=== PATIENT | male | born 1950 | race Hispanic/Latino ===

== ENCOUNTER 2018-12-19 16:15 | Observation (INO) | payer MEDICARE ==
[~2018-12-19] VITALS: Ht 170.2 cm; Wt 108.9 kg
[2018-12-19 17:02] LABS: BASOPHILS % 0.1 % (0.0-1.0); HEMATOCRIT 42.2 % (38.2-49.6); HEMOGLOBIN 14.3 g/dL (14.0-18.0); LYMPHOCYTES # (AUTO) 0.8 (1.0-3.2); LYMPHOCYTES % 4.1 % (18.0-39.1); MEAN CORPUSCULAR HGB CONC 33.9 g/dL (31-35); MEAN CORPUSCULAR VOLUME 91.3 fL (81-99); MONOCYTES # (AUTO) 0.7 (0.2-0.8); MONOCYTES % 3.9 % (4.4-11.3); NEUTROPHILS # (AUTO) 17.1 (2.1-6.9); NEUTROPHILS % 91.1 % (38.7-80.0); PLATELET COUNT 242 x10e3/uL (140-360); RED BLOOD COUNT 4.62 x10e6/uL (4.3-5.7); RED CELL DISTRIBUTION WIDTH 12.6 % (11.7-14.4)
[2018-12-19 17:17] LABS: ALANINE AMINOTRANSFERASE 30 IU/L (0-55); ALBUMIN 4.3 g/dL (3.5-5.0); ALBUMIN/GLOBULIN RATIO 1.4 (0.8-2.0); ALKALINE PHOSPHATASE 77 IU/L (40-150); ANION GAP 14.2 mmol/L (8-16); BLOOD UREA NITROGEN 23 mg/dL (7-26); BUN/CREATININE RATIO 19 (6-25); CALCIUM 9.9 mg/dL (8.4-10.2); CARBON DIOXIDE 24 mmol/L (22-29); CHLORIDE 105 mmol/L (98-107); CREATINE KINASE 1135 IU/L (30-200); CREATININE, SERUM 1.19 mg/dL (0.72-1.25); EST GLOMERULAR FILTRATION RATE > 60 ML/MIN (60-); GLUCOSE 138 mg/dL (74-118); POTASSIUM 4.2 mmol/L (3.5-5.1); SODIUM 139 mmol/L (136-145)
[2018-12-19 17:26] LABS: INR 1.05; PARTIAL THROMBOPLASTIN TIME 27.2 seconds (23.8-35.5); PROTHROMBIN TIME 14.2 seconds (11.9-14.5)
--- NOTE | 2018-12-19 18:14 | Diagnostic Imaging Report ---
EXAMINATION: CHEST SINGLE (PORTABLE) COMPARISON: None INDICATION: ^CHEST PAIN ^[id number] ^1752 ^Y DISCUSSION: Frontal view of the chest obtained at 1752 hours. HEART AND MEDIASTINUM: Enlarged with cardiac bypass changes LINES: None. LUNGS: The lungs are mildly hyperinflated suggestive of small airways disease. There is subsegmental atelectasis in the left lung. No pneumonia or pulmonary edema. PLEURA: No pleural effusion or pneumothorax. BONES AND SOFT TISSUES: Median sternotomy wires appear intact. The soft tissues are normal. IMPRESSION: Cardiomegaly without vascular congestion. Postoperative changes as described above. Mild pulmonary hyperinflation suggestive of small airways disease. Signed by: Dr. Beti Estevez MD on 12/19/2018 6:11 PM
[2018-12-19] MEDS ORDERED: ACETAMINOPHEN 325 MG TAB PO ONE (18:45)
[2018-12-19 18:50] LABS: BILIRUBIN,URINE NEGATIVE (NEGATIVE); CLARITY,URINE SL CLOUDY (CLEAR); COLOR,URINE YELLOW (YELLOW); KETONES,URINE NEGATIVE (NEGATIVE); LEUKOCYTE ESTERASE ,URINE NEGATIVE (NEGATIVE); NITRITE,URINE NEGATIVE (NEGATIVE); PROTEIN,URINE DIPSTICK 1+ (NEGATIVE); URINE UROBILINOGEN 0.2 mg/dL (0.2 - 1)
[2018-12-19] MEDS ORDERED: ACETAMINOPHEN 325 MG TAB ONE (18:50)
--- NOTE | 2018-12-19 19:05 | NUR ---
REPORT GIVEN TO DEUCE DAMON.
[2018-12-19 19:08] LABS: BACTERIA,URINE FEW /HPF; EPITHELIAL CELLS,URINE FEW /LPF; HYALINE CASTS 0-1 (0-1); RBC,URINE 0-5 /HPF (0-5)
[2018-12-19] MEDS ORDERED: CLOPIDOGREL75 MG PO (19:23)
[2018-12-19] MEDS ORDERED: COZAAR100 MG PO (19:23)
[2018-12-19] MEDS ORDERED: METOPROLOL TAR100 MG PO (19:23)
[2018-12-19] MEDS ORDERED: ISOSORBIDE MONO30 MG PO (19:23)
[2018-12-19] MEDS ORDERED: ASPIR 8181 MG PO (19:23)
[2018-12-19] MEDS ORDERED: CRESTOR40 MG PO (19:23)
[2018-12-19] MEDS ORDERED: SERTRALINE HCL50 MG PO (19:23)
[2018-12-19] MEDS ORDERED: IBUPROFEN400 MG PO (19:24)
[2018-12-19] MEDS ORDERED: ASPIRIN 81 MG CHEW TAB PO ONE (19:45)
[2018-12-19] MEDS ORDERED: MORPHINE SULFATE 2 MG/ML SYR 1ML IV PRN (19:45)
--- OUTSIDE RECORDS SUMMARY | 2018-12-19 19:53 | XMS REPORT ---
Author Author [facility] Address Unknown Phone Unavailable Care Team Providers Care Lurer Name Role Phone Rissa MALONEY Unavailable Unavailable Problems This patient has no known problems. Allergies, Adverse Reactions, Alerts This patient has no known allergies or adverse reactions. Medications This patient has no known medications. Results Test Description Test Time Test Comments Text Results Atomic Results Result Comments CHEST SINGLE (PORTABLE) 2018-12-19 18:10:00 [place] [address] Patient Name: DAVID QUIÑONES MR #: [id number] : 1950 Age/Sex: 68/M Req #: [id number] Adm Physician: Ordered by: ALCIDES MALONEY MD Report #: [id number] Location: ER Room/Bed: Procedure: [id number] DX/CHEST SINGLE (PORTABLE) Exam Date: 12/19/18 Exam Time: 1752 REPORT STATUS: Signed EXAMINATION: CHEST SINGLE (PORTABLE) C OMPARISON: None INDICATION: CHEST PAIN [id number] 1752 Y DISCUSSION: Frontal view of the chest obtained at 1752 hours. HEART AND MEDIASTINUM: Enlarged with cardiac bypass changes LINES: None. LUNGS: The lungs are mildly hyperinflated suggestive of small airways disease. There is subsegmental atelectasis in the left lung. No pneumonia or pulmonary edema. PLEURA: No pleural effusion or pneumothorax. BONES AND SOFT TISSUES: Median sternotomy wires appear intact. The soft tissues are normal. IMPRESSION: Cardiomegaly without vascular congestion. Postoperative changes as described above. Mild pulmonary hyperinflation suggestive of small airways disease. Signed by: Dr. Mahamed Estevez MD on 12/19/2018 6:11 PM Dictated By: MAHAMED ESTEVEZ MD 10 Transcribed By: RAMYA on 12/19/181810 COPY TO: ALCIDES MALONEY MD
[2018-12-19] MEDS ORDERED: LABETALOL HCL 20 ML ONE (19:58)
[2018-12-19] MEDS ORDERED: SODIUM CHLORIDE 0.9% 1000ML 1,000 ML IV ONE ×2 (20:45)
[2018-12-19 21:03] VITALS: BP 170/100
[2018-12-19 21:04] VITALS: BP 170/100
[2018-12-19 21:05] VITALS: BP 170/100
[2018-12-19 23:29] VITALS: BP 167/94
[2018-12-20 00:17] LABS: CREATINE KINASE 896 IU/L (30-200)
[2018-12-20 00:18] LABS: CHOL/HDL RATIO 2.9 (3.9-4.7)
[2018-12-20] MEDS ORDERED: SODIUM CHLORIDE 0.9% 1000ML 1,000 ML IV SCH (00:30)
[2018-12-20] MEDS ORDERED: ACETAMINOPHEN 325 MG TAB PO PRN (00:30)
--- NOTE | 2018-12-20 03:36 | History and Physical ---
PRIMARY CARE DOCTOR: Jani Yousif MD, [facility]. HOSPITAL DOCTOR: Dr. Omar Anton. CHIEF COMPLAINT: Chest pain. HISTORY OF PRESENT ILLNESS: Mr. Orosco is a pleasant 68-year-old gentleman with chest pain. The patient with long-standing history of heart problems. In 2004, the patient had CABG. The patient had four cardiac stents with last in [address] Cummings. He currently sees Dr. Asael Siddiqui. The patient received bilateral steroid shots in upper extremities for arthritis with insertion site towards the back. The patient this morning had onset of headaches. The patient had a pattern of malaise as well. The patient with blood pressure that was quite high for him up to 170s. It started worsening, the patient came to emergency room. White blood count was 18.7. EKG reported preliminary nicolas to be nonspecific. The patient had a chest x-ray with mild hyperinflation, but otherwise no acute changes. CK was increased to 1135, and BNP was 142. He is admitted for observation. PAST MEDICAL HISTORY: CABG in 2004, back surgery, cardiac stents last in [address] Dr. Cummings, BPH, hypertension, depression, hyperlipidemia, osteoarthritis, and obstructive sleep apnea, on CPAP. MEDICATIONS: List per electronic record. ALLERGIES: NO KNOWN DRUG ALLERGIES. SOCIAL HISTORY: No alcohol. No drugs. The patient smoked from age 20 to 67, but quit in April 2018. One-half pack per day average. 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 FAMILY HISTORY: Noncontributory. REVIEW OF SYSTEMS: GENERAL: No weight changes. OPHTHALMOLOGIC: No double vision. ENT: No mouth ulcers. ENDOCRINE: No thyroid disease. PULMONARY: No asthma. CARDIAC: No recent TN. GI: No constipation. : No diarrhea. MUSCULOSKELETAL: Mild arthritis. NEUROLOGIC: No seizures. DERMATOLOGIC: No rashes. PHYSICAL EXAMINATION: VITAL SIGNS: Currently afebrile, vital signs noted reviewed per the chart record. Heart rate 82, blood pressure 167/94, 240 pounds, BMI 37.6. GENERAL: In no acute distress, alert and calm. HEENT: Normocephalic and atraumatic. NECK: Supple. Throat, midline. LUNGS: Bilateral air entry is moderate to good, minimally reduced. Clear. CARDIOVASCULAR: S1 and S2. No murmurs, rubs, or gallops. ABDOMINAL: Soft and nontender. EXTREMITIES: No clubbing no cyanosis. There is only trace edema in the legs. INTEGUMENT: No rash. No purpura. LABORATORY DATA: Potassium 4.2, BUN 23, creatinine 1.2, and bicarbonate 24. White count 18.7, hematocrit 42, and platelets 242. LFTs are unremarkable. BNP 142 and albumin 4.3. CK-MB 8.9, elevated. Chest x-ray as stated. IMPRESSION AND PLAN: 1. Chest pain, treat for acute coronary syndrome. 2. Known coronary artery disease, status post CABG in [facility] last in 10/2015. 3. Rhabdomyolysis, not otherwise specified with body aches. Higher differential includes medicine reaction, infection. Less likely other condition and he did not give us titration of overuse. 4. Benign prostatic hyperplasia. 5. Hypertension. 6. Depression. 7. Hyperlipidemia. 8. Osteoarthritis, status post recent injections yesterday. 9. Obstructive sleep apnea, on CPAP. 10. Chronic smoking, quit in April 2018. Check TSH. Repeat cardiac enzymes serially. Get cardiology consult. Assess repeat x-ray after today that said to be lung remains clear as there is mild limitation on this one view. Control blood pressure. Repeat white count tomorrow. Thank you very much, Dr. Yousif, for allowing Dr. Sherman and Dr. Anton, the chance to participate in care of Mr. Orosco. Please call for questions. MD GRABIEL Suazo/CUCO /[id number]
[2018-12-20 04:44] VITALS: BP 142/92
[2018-12-20 05:24] LABS: BASOPHILS % 0.1 % (0.0-1.0); HEMATOCRIT 43.5 % (38.2-49.6); HEMOGLOBIN 14.2 g/dL (14.0-18.0); LYMPHOCYTES # (AUTO) 1.1 (1.0-3.2); LYMPHOCYTES % 6.5 % (18.0-39.1); MEAN CORPUSCULAR HEMOGLOBIN 30.7 pg (28-32); MEAN CORPUSCULAR HGB CONC 32.6 g/dL (31-35); MONOCYTES # (AUTO) 1.1 (0.2-0.8); MONOCYTES % 6.8 % (4.4-11.3); NEUTROPHILS % 85.8 % (38.7-80.0); PLATELET COUNT 227 x10e3/uL (140-360); RED BLOOD COUNT 4.63 x10e6/uL (4.3-5.7); RED CELL DISTRIBUTION WIDTH 12.9 % (11.7-14.4)
[2018-12-20 05:52] LABS: ALANINE AMINOTRANSFERASE 28 IU/L (0-55); ALBUMIN 3.8 g/dL (3.5-5.0); ALBUMIN/GLOBULIN RATIO 1.3 (0.8-2.0); ALKALINE PHOSPHATASE 79 IU/L (40-150); ANION GAP 12.9 mmol/L (8-16); BLOOD UREA NITROGEN 20 mg/dL (7-26); BUN/CREATININE RATIO 19 (6-25); CALCIUM 9.4 mg/dL (8.4-10.2); CARBON DIOXIDE 26 mmol/L (22-29); CHLORIDE 105 mmol/L (98-107); CREATININE, SERUM 1.08 mg/dL (0.72-1.25); EST GLOMERULAR FILTRATION RATE > 60 ML/MIN (60-); GLUCOSE 225 mg/dL (74-118); MAGNESIUM 2.3 MG/DL (1.3-2.1); PHOSPHORUS 2.2 MG/DL (2.3-4.7); POTASSIUM 4.9 mmol/L (3.5-5.1); SODIUM 139 mmol/L (136-145)
[2018-12-20 05:56] LABS: THYROID STIMULATING HORMONE 0.596 uIU/mL (0.350-4.940)
[2018-12-20 07:53] VITALS: BP 156/74
[2018-12-20 08:11] LABS: CREATINE KINASE MB 8.5 ng/mL (0-5.0)
[2018-12-20] MEDS ORDERED: METOPROLOL TARTRATE 50 MG TAB PO SCH (09:00)
[2018-12-20] MEDS ORDERED: SERTRALINE HCL 50 MG TAB PO SCH (09:00)
[2018-12-20] MEDS ORDERED: CLOPIDOGREL BISULFATE 75 MG TAB PO SCH (09:00)
[2018-12-20] MEDS ORDERED: LOSARTAN POTASSIUM 100 MG TAB PO SCH (09:00)
[2018-12-20] MEDS ORDERED: ASPIRIN 325 MG TAB EC PO SCH (09:00)
[2018-12-20] MEDS ORDERED: ISOSORBIDE MONONITRATE 30 MG TAB CR PO SCH ×2 (09:00)
--- NOTE | 2018-12-20 09:08 | Diagnostic Imaging Report ---
Chest, 2 views, 12/20/2018. History: Atelectasis. Comparison: 12/19/2018. Findings: The cardiac silhouette and pulmonary vasculature are mildly prominent. There is biapical pleural thickening. Linear opacities are present in the lung bases. There is no focal consolidation or pleural effusion. There are no acute osseous or soft tissue abnormalities. Impression: Cardiomegaly and mild vascular congestion with bibasilar atelectasis. Signed by: James Barrera on 12/20/2018 9:04 AM
[2018-12-20] MEDS ORDERED: METOPROLOL SUCCINATE 50 MG TAB XL PO SCH (09:30)
[2018-12-20 09:51] VITALS: BP 156/74
--- NOTE | 2018-12-20 10:38 | Consultation ---
DATE OF CONSULTATION: 12/20/2018 Cardiology Consultation CONSULTING PHYSICIAN: Cipriano Alcaraz M.D., Interventional Cardiology. REASON FOR CONSULTATION: Chest pain. HISTORY OF PRESENT ILLNESS: A 68-year-old man with history of remote aortocoronary bypass, and prior coronary PCI in 2016 with reported recent stress test performed within the last year, followed by angiography at that time with no interventions per patient account, history of hypertension, dyslipidemia presents with complaint of uncontrolled blood pressure and in the setting of chest discomfort. This has been ongoing for over a year and present prior to last stress test per his report, symptoms worsened with elevated blood pressure. He recently underwent spinal injections 2 days ago for radiculopathy with some improvement in back discomfort, however, persistence of chest discomfort. He feels overall well except when he sits up or starts moving around, symptoms do worsen with activity of rotation of the trunk or movements of upper extremity. Serial cardiac enzymes have been negative. His EKG was reviewed. CK was elevated concerning for some of the component of rhabdomyolysis, which could be resulted from recent injections; however, his troponins have been negative. He has therefore negative cardiac biomarkers from a cardiac standpoint. He has established follow up with a galley boy. REVIEW OF SYSTEMS: A 12-system review is negative except for as noted above. PAST MEDICAL HISTORY: As per HPI. SOCIAL HISTORY: Former smoker. Denies alcohol. Denies drugs. FAMILY HISTORY: Noncontributory. PHYSICAL EXAMINATION: VITAL SIGNS: Temperature 97.3, heart rate 60, blood pressure 156/74, respiratory rate 18, O2 saturation 98%. GENERAL: In no acute distress, alert. NECK: No JVD. CHEST: Clear to auscultation. CARDIOVASCULAR: Regular rate and rhythm. Normal S1, S2. Sternotomy scar. No S3 or S4. No murmurs. ABDOMEN: Soft, nontender. EXTREMITIES: No edema. Warm distal extremities. CARDIOVASCULAR MEDICATIONS: Reviewed. Clopidogrel 75 mg daily, metoprolol 100 mg daily, isosorbide mononitrate 30 mg daily, losartan 100 mg daily, aspirin 325 mg daily. LABORATORY DATA: Serial cardiac troponins are negative. Creatinine 1.08, potassium 4.9. Hemoglobin 14.2, platelets 227, white blood cells 16. INR 1. AST 38, ALT 28. ASSESSMENT AND PLAN: A 68-year-old man with a history of aortocoronary bypass and prior stents, presents with: 1. Chest pain, atypical. 2. History of stable angina. 3. Rhabdomyolysis. 4. Hypertension. 5. Dyslipidemia. 6. Former smoker. RECOMMENDATIONS: 1. Has ruled out for AMI. 2. The patient has outpatient established cardiology followup. I advised up titration of isosorbide to 120 mg and continuation of rest of cardiovascular medications with the following change, metoprolol tartrate switched to metoprolol succinate. Continue dual antiplatelet therapy. Add statin therapy and okay to follow up with outpatient galley boy within 1 week post discharge. Cipriano Alcaraz MD AFDequan/MODL /[id number]
[2018-12-20] MEDS ORDERED: TOPROL XL50 MG PO (12:06)
[2018-12-20] MEDS ORDERED: ISOSORBIDE MONO30 MG PO (12:06)
[2018-12-20] MEDS ORDERED: DOXYCYCLINE HY100 M3 PO (12:11)
--- NOTE | 2018-12-20 20:56 | NUR ---
discharge [id number]
--- NOTE | 2018-12-21 05:18 | Discharge Summary ---
PRIMARY CARE DOCTOR: Jani Yousif MD, [facility]. HOSPITAL DOCTOR: Ever Anton MD PRIMARY DIAGNOSES: 1. Chest pain, possible acute coronary syndrome. 2. Rhabdomyolysis, leukocytosis, mild venous congestion versus pneumonia. DISCHARGE DIAGNOSES: 1. Less likely acute coronary syndrome, known small-vessel cardiac disease. 2. More likely reaction to epidural injection per cardiology. HOSPITAL COURSE: Mr. Orosco is a pleasant 68-year-old gentleman with malaise, headaches, and aches all over. He came to the emergency room with blood pressure 170s easily. White blood count was 18.7, CK 1135, BNP 142. Chest x-ray with mild hyperinflation versus mild overload/atelectasis. Given his complex cardiac history, he was admitted. He is ruled out for cardiac enzymes. Take Out Wait[employer] got records, so CABG in 2004 and last cardiac stent in 2016 and known small vessel cardiac disease. Recommendation was to optimize/up-titrate cardiac medications including nitrates. The patient's CK come down to 758. White count came down to 16 minimally. He was treated with antibiotics for possible pneumonia. Chest x-ray showed faint findings of overload versus atelectasis on day #2. The patient was really wanting to go home and he was allowed to go home on antibiotics as well with increased cardiac medications. He was given record to take to his primary care doctor. he can come back to the hospital as indicated or call 911. DIET: Cardiac diet. ACTIVITY: As tolerated. MEDICATIONS AT DISCHARGE: Please see medication discharge record. 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 And the current dose of statin he is on should be associated with a huge mortality benefit. The patient is to follow up with Dr. Yousif or Dr. Siddiqui in the next week with his records that were given to him. Greater than 30 minutes in discharge planning and coordination. MD GRABIEL Suazo/CUCO /[id number]
== END 2018-12-20 14:08 | disposition home or self-care (01) ==
LOC: ER 16:15 → ERHOLD 19:45 → IMCU 20:46
PROVIDERS: ADMIT Internal Medicine Critical Care Medicine; ATTEND Internal Medicine Critical Care Medicine
DX: R07.89 Other chest pain (principal); M62.82 Rhabdomyolysis; M19.90 Unspecified osteoarthritis, unspecified site; N40.0 Benign prostatic hyperplasia without lower urinary tract symptoms; I10 Essential (primary) hypertension; E78.5 Hyperlipidemia, unspecified; Z95.1 Presence of aortocoronary bypass graft; Z95.5 Presence of coronary angioplasty implant and graft; Z82.49 Family history of ischemic heart disease and other diseases of the circulatory system; I25.10 Atherosclerotic heart disease of native coronary artery without angina pectoris; F32.9 Major depressive disorder, single episode, unspecified; G47.33 Obstructive sleep apnea (adult) (pediatric); Z87.891 Personal history of nicotine dependence
CPT/HCPCS: 36415 ×2; 71045; 71046; 80053 ×2; 80061; 81001; 82550 ×2; 82553 ×2; 83735; 83880; 84100; 84443; 84484 ×2; 85025 ×2; 85610; 85730; 86140; 93005; 93306; 96361; 99284; G0378 ×2; J3490; J7030 ×2; 96360

== ENCOUNTER → 2021-09-09 | Outpatient (CLI) | payer OTHER ==
[~2021-09-09] MED LIST: ASPIR 8181 MG PO; CLOPIDOGREL75 MG PO; COZAAR100 MG PO; CRESTOR40 MG PO; DOXYCYCLINE HY100 M3 PO; IBUPROFEN400 MG PO; ISOSORBIDE MONO30 MG PO; METOPROLOL TAR100 MG PO; SERTRALINE HCL50 MG PO; TOPROL XL50 MG PO
== END ==
LOC: NM 08:20
PROVIDERS: ATTEND Family Medicine
DX: E04.1 Nontoxic single thyroid nodule (principal)
CPT/HCPCS: 78014; A9516

== ENCOUNTER 2021-09-28 19:17 | Emergency (ER) | payer OTHER ==
[~2021-09-28] VITALS: Ht 170.2 cm; Wt 108.9 kg
[2021-09-28] MEDS ORDERED: AMOXICILLIN/CLAVULANATE K 500 MG TAB PO ONE (19:45)
[2021-09-28] MEDS ORDERED: LIDOCAINE 1% 5ML-MPF INJ ONE (19:45)
[2021-09-28] MEDS ORDERED: TETANUS/DIPHTHERIA TOX ADULT 0.5 ML SYR IM ONE (19:45)
== END 2021-09-28 20:10 | disposition home or self-care (01) ==
LOC: ER 19:38
DX: S61.452A Open bite of left hand, initial encounter (principal); W54.0XXA Bitten by dog, initial encounter; Y92.89 Other specified places as the place of occurrence of the external cause; I10 Essential (primary) hypertension; E78.5 Hyperlipidemia, unspecified; F32.A Depression, unspecified; Z95.1 Presence of aortocoronary bypass graft; Z95.5 Presence of coronary angioplasty implant and graft
CPT/HCPCS: 90471; 90714; 99283

== ENCOUNTER → 2022-07-01 | Day surgery (SDC) | payer MEDICARE, OTHER ==
[2022-06-29 11:37] LABS: BASOPHILS # (AUTO) 0.1 (0.0-0.1); BASOPHILS % 0.4 % (0.0-1.0); EOSINOPHILS # (AUTO) 0.3 (0.0-0.4); EOSINOPHILS % 2.4 % (0.0-6.0); HEMATOCRIT 46.7 % (38.2-49.6); HEMOGLOBIN 15.1 g/dL (14.0-18.0); LYMPHOCYTES # (AUTO) 1.4 (1.0-3.2); LYMPHOCYTES % 12.2 % (18.0-39.1); MEAN CORPUSCULAR HEMOGLOBIN 29.9 pg (28-32); MEAN CORPUSCULAR HGB CONC 32.3 g/dL (31-35); MEAN CORPUSCULAR VOLUME 92.5 fL (81-99); MONOCYTES # (AUTO) 0.7 (0.2-0.8); MONOCYTES % 6.5 % (4.4-11.3); NEUTROPHILS # (AUTO) 8.8 (2.1-6.9); NEUTROPHILS % 77.8 % (38.7-80.0); PLATELET COUNT 206 x10e3/uL (140-360); RED BLOOD COUNT 5.05 x10e6/uL (4.3-5.7); RED CELL DISTRIBUTION WIDTH 13.8 % (11.7-14.4)
[~2022-07-01] MED LIST changes: +FLOMAX0.4 MG PO; +METFORMIN HCL500 MG PO; +METOPROLOL SUCC25 MG PO; +PROPOFOL IV EMULSION 10 MG/ML 20 ML VIAL ONE; +TRELEGY ELLIPT1 EACH INH
[2022-07-01 10:00] VITALS: BP 123/83
== END | disposition home or self-care (01) ==
LOC: OR 07:14
PROVIDERS: ATTEND Internal Medicine Gastroenterology
DX: Z09 Encounter for follow-up examination after completed treatment for conditions other than malignant neoplasm (principal); K63.5 Polyp of colon; K64.8 Other hemorrhoids; K21.9 Gastro-esophageal reflux disease without esophagitis; G47.33 Obstructive sleep apnea (adult) (pediatric); I25.810 Atherosclerosis of coronary artery bypass graft(s) without angina pectoris; E78.00 Pure hypercholesterolemia, unspecified; I10 Essential (primary) hypertension; N40.0 Benign prostatic hyperplasia without lower urinary tract symptoms; J45.909 Unspecified asthma, uncomplicated; M19.90 Unspecified osteoarthritis, unspecified site; M06.9 Rheumatoid arthritis, unspecified; F32.A Depression, unspecified; Z01.810 Encounter for preprocedural cardiovascular examination; Z01.812 Encounter for preprocedural laboratory examination; Z79.02 Long term (current) use of antithrombotics/antiplatelets; Z79.899 Other long term (current) drug therapy; Z68.32 Body mass index [BMI] 32.0-32.9, adult; Z95.5 Presence of coronary angioplasty implant and graft; Z95.1 Presence of aortocoronary bypass graft; Z87.891 Personal history of nicotine dependence
CPT/HCPCS: 36415; 45378; 82948; 85025; 88305; 93005